=== PATIENT | male | born 1945 | race Caucasian/White ===

== ENCOUNTER 2018-10-03 10:28 | Outpatient (CLI) | payer MEDICARE, OTHER | END 2018-10-03 10:29 | disposition home or self-care (01) | LOC: CTENTCT 10:28 | PROVIDERS: ATTEND Otolaryngology Plastic Surgery within the Head & Neck | DX: J32.9 Chronic sinusitis, unspecified (principal) | CPT/HCPCS: 70486 ==

== ENCOUNTER 2020-08-12 08:01 | Outpatient (CLI) | payer MEDICARE, OTHER ==
[2020-08-13 12:03] LABS: SARS-CoV-2 MS2 Positive; SARS-CoV-2 N Gene Negative; SARS-CoV-2 S Gene Negative; SARS-CoV-2 by NAA Not Detected (NotDetected); SARS-CoV-2 orf1ab Negative
== END 2020-08-12 08:02 | disposition home or self-care (01) ==
LOC: LABBT 08:01
PROVIDERS: ATTEND Ophthalmology Retina Specialist
DX: H43.822 Vitreomacular adhesion, left eye (principal); Z20.828 Contact with and (suspected) exposure to other viral communicable diseases
CPT/HCPCS: 87635; U0003

== ENCOUNTER 2020-08-15 07:22 | Day surgery (SDC) | payer MEDICARE, OTHER ==
[2020-08-14 08:46] VITALS: BMI 24.8
[~2020-08-15 07:22] MED LIST: Fluorouracil 100 MG, Enoxaparin Sodium 25 MG, EPINEPHrine 0.3 MG in Ophthalmic Irrigati... IRR SCH
[2020-08-15] MEDS ORDERED: Phenylephrine 2.5% Ophth Soln 5 ML BOT ONE (07:27)
[2020-08-15] MEDS ORDERED: Cyclopentolate 1% Opth Drop 2 ML BOT ONE (07:27)
[2020-08-15] MEDS ORDERED: Lidocaine 1% PF 5 ML VIAL ONE (12:31)
[2020-08-15] MEDS ORDERED: Triamcinolone 40 MG/ML VIAL ONE (12:31)
[2020-08-15] MEDS ORDERED: PROPOFOL 200 MG/20 ML VIAL ONE (12:31)
[2020-08-15] MEDS ORDERED: Maxitrol 0.1% Opth Oint 3.5 GM TUBE ONE (12:31)
[2020-08-15] MEDS ORDERED: CEFAZOLIN 1 GM VIAL ONE (12:31)
--- NOTE | 2020-08-16 17:10 | OP ---
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 PROCEDURES PERFORMED: Pars plana vitrectomy, membrane peel, left eye. ANESTHESIA: Local with monitored anesthesia care. PROCEDURE IN DETAIL: The patient was identified in the preoperative holding area. Appropriate informed consent for the planned surgical procedure on the left eye had been obtained. The patient was transported to the operative suite. Appropriate cardiopulmonary monitoring was established. Local anesthesia obtained using retrobulbar modified Van Lint lid block using 50:50 mixture of 4% lidocaine and 0.75% bupivacaine. The patient was prepped and draped in the usual sterile manner for ophthalmic surgery on the left eye. Lid speculum was placed in the left eye. A 27-gauge trocar was placed in the conjunctiva and sclera superotemporally, inferotemporally, and supranasally. Infusion line was placed inferotemporally. Light pipe vitreous cutter was inserted into the eye. Core vitrectomy was performed. The posterior hyaloid face was noted to be down and rigidly attached to the perifoveal area. This was elevated using vacuum suction and peeled across the macula. Release of traction on the fovea was noted at this time. Indirect ophthalmoscopy was used to examine the retina 360 degrees. No holes, breaks, or tears were identified. Trocars were removed and the eye was noted to retain pressure well. Retrobulbar Kenalog and subconjunctival Ancef were placed and antibiotic ointment was placed. The eye was patched and shielded. The patient was taken to the postop recovery unit in good condition, having suffered no immediate perioperative complications. The patient was instructed to keep patch and shield on, avoid lifting or bending. Followup appointment with Dr. Tompkins. Job ID: [id number]
== END 2020-08-15 10:20 | disposition home or self-care (01) ==
LOC: SDC 07:22
PROVIDERS: ATTEND Ophthalmology Retina Specialist
PROC: 08T53ZZ Resection of Left Vitreous, Percutaneous Approach (ICD-10-PCS; principal; 2020-08-15)
PROC: 08NF3ZZ Release Left Retina, Percutaneous Approach (ICD-10-PCS; 2020-08-15)
DX: H35.372 Puckering of macula, left eye (principal); H43.822 Vitreomacular adhesion, left eye; Z79.82 Long term (current) use of aspirin; Z79.899 Other long term (current) drug therapy; Z91.040 Latex allergy status
CPT/HCPCS: J0171; J0690; J1650; J2704; J3301; J9190